=== PATIENT | female | born 1985 | race Caucasian/White ===

== ENCOUNTER 2019-06-22 17:37 | Emergency (ER) ==
[2019-06-22 17:44] VITALS: BP 105/74; TEMP 97.8; BMI 22.8
[2019-06-22] MEDS ORDERED: PYRIDIUM PO STA (19:13)
--- NOTE | 2019-06-22 19:13 | ED.PDOC ---
General ED Provider: Dr. JOSE A REAL Chief Complaint: Urinary Problem Stated Complaint: When I pee its like glass Time Seen by Physician: 19:11 Mode of Arrival: Walk-In Information Source: Patient Nursing and Triage Documentation Reviewed and Agree: Yes Does patient meet sepsis criteria?: No System Inflammatory Response Syndrome: Not Applicable Sepsis Protocol: For patient's 13 years and over: Temp is 96.8 and below OR 101 and greater Pulse >90 BPM Resp >20/minute Acutely Altered Mental Status Are patient's symptoms suggestive of a new infection, such as: -Pneumonia -Skin, Soft Tissue -Endocarditis -UTI -Bone, Joint Infection -Implantable Device -Acute Abdominal Infection -Wound Infection -Meningitis -Blood Stream Catheter Infection -Unknown Review of Systems - Review Of Systems Constitutional: Denies: Chills, Fever Eyes: Reports: No symptoms Ears, Nose, Mouth, Throat: Reports: No symptoms Respiratory: Reports: No symptoms Cardiac: Reports: No symptoms GI: Reports: No symptoms : Reports: No symptoms Musculoskeletal: Reports: Back pain Skin: Reports: No symptoms Neurological: Reports: Anxiety Endocrine: Reports: No symptoms Hematologic/Lymphatic: Reports: No symptoms All Other Systems: Reviewed and Negative Past Medical History - Past Medical History Previously Healthy: Yes Endocrine: Reports: None Cardiovascular: Reports: None Respiratory: Reports: None Hematological: Reports: None Gastrointestinal: Reports: None Genitourinary: Reports: None Neuro/Psych: Reports: Anxiety Musculoskeletal: Reports: None Cancer: Reports: None Last Menstrual Period: 06/07/2019 - Surgical History General Surgical History: Reports: Other (D&C 2 weeks ago, 2 laparoscopic surgeries with tubal. T&A) - Family History Family History: Reports: Unknown - Social History Smoking Status: Never smoker Hx Substance Use: No Alcohol Screening: Occasionally - Immunizations Tetanus Shot up to Date: Yes Physical Exam - Physical Exam Appearance: Thin Pain Distress: Mild Neck: Supple Respiratory: Airway patent, Breath sounds clear, Breath sounds equal, Respirations nonlabored Cardiovascular: RRR, Pulses normal, No rub, No murmur GI/: Soft, Nontender Musculoskeletal: Normal strength, ROM intact, No edema, No calf tenderness Skin: Warm Neurological: Alert, Oriented Psychiatric: Anxious Critical Care Note - Critical Care Note Total Time (mins): 0 Course - Course Orders, Labs, Meds: Lab Review 06/22/19 18:50 Urine Color Yellow Urine Clarity Clear Urine pH 5.5 Ur Specific [place] >=1.030 Urine Protein Trace Urine Glucose (UA) Negative Urine Ketones Negative Urine Blood Negative Urine Nitrite Negative Urine Bilirubin Negative Urine Urobilinogen 0.2 Ur Leukocyte Esterase Negative Urine Microscopic WBC 5-10 Ur Squamous Epith Cells 2-5 Urine Bacteria 2+ Orders Category Date Time Status UA [URINALYSIS C & S IF INDICATED] Stat LAB 06/22/19 18:50 Completed URINE CULTURE Stat LAB 06/22/19 18:50 Results Phenazopyridine HCl [Pyridium] MEDS 06/22/19 19:13 Discontinued 100 mg PO ONCE STA Medications Discontinued Medications Generic Name Dose Route Start Last Admin Trade Name Freq PRN Reason Stop Dose Admin Phenazopyridine HCl 100 mg 06/22/19 19:13 06/22/19 19:17 Pyridium PO 06/22/19 19:14 100 mg ONCE STA Administration Vital Signs: Temp Pulse Resp BP Pulse Ox 06/22/19 17:38 97.8 F 65 16 105/74 99 Departure - Departure Time of Disposition: 02:10 Disposition: HOME SELF-CARE Discharge Problem: Urinary symptoms Instructions: Urinary Tract Infection in Women (ED) Condition: Fair Pt referred to PMD for follow-up: Yes IPMP verified?: No Additional Instructions: Take Medications as prescribed Follow up with PCP in 3 days Push fluids Prescriptions: Hydrocodone Bit/Acetaminophen [[place] 5-325] 1 each PO Q6HR PRN #10 tablet PRN Reason: severe pain Levofloxacin [Levaquin] 500 mg PO DAILY #7 tablet Phenazopyridine HCl [Pyridium] 100 mg PO TID PRN #10 tablet PRN Reason: Urinary Burning. Allergies/Adverse Reactions: Allergies Sulfa (Sulfonamide Antibiotics) Adverse Reaction (Verified 06/22/19 18:47) tramadol Adverse Reaction (Verified 06/22/19 18:47) Home Medications: Ambulatory Orders Citalopram Hydrobromide [Celexa] 20 mg PO DAILY 06/22/19 Clonazepam [Klonopin] 0.5 mg PO BID PRN 06/22/19 Hydrocodone Bit/Acetaminophen [[place] 5-325] 1 each PO Q6HR PRN #10 tablet Levofloxacin [Levaquin] 500 mg PO DAILY #7 tablet 06/22/19 Phenazopyridine HCl [Pyridium] 100 mg PO TID PRN #10 tablet 06/22/19 Transfer Form Completed: Yes Disposition Discussed With: Family
== END 2019-06-22 19:30 | disposition home or self-care (01) ==
LOC: ED 17:37
DX: N39.0 Urinary tract infection, site not specified (principal)
CPT/HCPCS: 81001; 87086; 87186; 99283